=== PATIENT | male | born 1975 | race Caucasian/White ===

== ENCOUNTER 2018-05-07 14:41 | Inpatient (IN) | payer OTHER ==
[~2018-05-07] VITALS: Ht 190.5 cm; Wt 155.6 kg
[2018-05-07 14:46] VITALS: BP 155/90
[2018-05-07] MEDS ORDERED: ASPIRIN 325 MG TAB PO ONE (15:55)
[2018-05-07] MEDS ORDERED: NITROGLYCERIN 2% 1 GM PKT TP ONE (15:55)
[2018-05-07] MEDS ORDERED: MORPHINE SULFATE 4 MG/ML SYR IVP ONE (15:55)
[2018-05-07] MEDS ORDERED: LIDOCAINE VISCOUS 2% 20 ML UDC PO ONE (16:25)
[2018-05-07] MEDS ORDERED: ALUMINUM HYD/MAG/SIMETHICONE 30 ML UDC PO ONE (16:25)
[2018-05-07 16:31] LABS: BASOPHILS % (AUTO) 0.7 % (0.0-2.0); EOSINOPHILS # (AUTO) 0.1 K/uL (0-0.4); EOSINOPHILS % (AUTO) 1.7 % (0.0-4.0); HEMATOCRIT 48.7 % (36-52); HEMOGLOBIN 16.4 g/dL (12.0-18.0); LYMPHOCYTES # (AUTO) 1.9 K/uL (2.0-11.5); LYMPHOCYTES % (AUTO) 30.6 % (20.5-51.1); MEAN CORPUSCULAR HEMOGLOBIN 33 pg (27-31); MEAN CORPUSCULAR HGB CONC 34 g/dL (33-37); MEAN CORPUSCULAR VOLUME 96.6 fL (80-94); MONOCYTES # (AUTO) 0.4 K/uL (0.8-1.0); MONOCYTES % (AUTO) 7.3 % (1.7-9.3); NEUTROPHILS # (AUTO) 3.7 K/uL (1.8-7.7); NEUTROPHILS % (AUTO) 59.7 % (42.2-75.2); PLATELET COUNT (AUTO) 101 K/uL (140-450); RED BLOOD CELL COUNT(AUTO) 5.04 MIL/uL (4.20-6.10); RED CELL DISTRIBUTION WIDTH 14.3 % (11.6-13.7); WHITE BLOOD COUNT (AUTO) 6.1 K/uL (4.8-10.8)
[2018-05-07 16:36] LABS: ANION GAP 14.1 (8-16); CARBON DIOXIDE 28.3 mmol/L (21-32); CREATININE 0.9 mg/dL (0.7-1.3); POTASSIUM 3.4 mmol/L (3.5-5.1)
[2018-05-07 16:52] LABS: CHOL/HDL RATIO 3.2 (1-4.5)
[2018-05-07 17:01] LABS: CREATINE KINASE MB 1.3 ng/mL (0-3.6)
[2018-05-07] MEDS ORDERED: INSULIN REGULAR, HUMAN 100 UNIT/ML VIAL IVP ONE (17:05)
[2018-05-07] MEDS ORDERED: POTASSIUM CHLORIDE 10 MEQ TABER PO ONE (17:05)
[2018-05-07] MEDS ORDERED: ACETAMINOPHEN 325 MG TAB PO PRN (18:05)
[2018-05-07] MEDS ORDERED: MORPHINE SULFATE 4 MG/ML SYR IVP PRN (18:05)
[2018-05-07] MEDS ORDERED: ONDANSETRON 4 MG/2 ML VIAL IVP PRN (18:05)
[2018-05-07] MEDS ORDERED: LORazepam 2 MG/ML VIAL IVP ONE (18:35)
[2018-05-07 19:25] VITALS: BP 151/94
[2018-05-07] MEDS: MULTIVITAMIN-12 10 ML, THIAMINE 100 MG, MAGNESIUM SULFATE 50% 2,000 MG, FOLIC ACID 1 MG... IV SCH ×5 (20:30)
[2018-05-07] MEDS: BLOOD GLUCOSE MONITORING 1 DEV DEV FS SCH (20:33)
[2018-05-07] MEDS: INSULIN LISPRO SLIDING SCALE 100 UNITS/ML VIAL SUBQ PRN (22:02)
[2018-05-07] MEDS: LORazepam 2 MG/ML VIAL IVP PRN (22:06)
[2018-05-08] VITALS: BP 133/86
[2018-05-08 00:34] LABS: CREATINE KINASE MB 1.2 ng/mL (0-3.6)
[2018-05-08 04:00] VITALS: BP 132/94
[2018-05-08] MEDS: BLOOD GLUCOSE MONITORING 1 DEV DEV FS SCH ×4 (06:30→21:00)
[2018-05-08] MEDS: INSULIN LISPRO SLIDING SCALE 100 UNITS/ML VIAL SUBQ PRN ×4 (06:33→20:45)
[2018-05-08 07:30] LABS: BASOPHILS % (AUTO) 0.6 % (0.0-2.0); EOSINOPHILS # (AUTO) 0.1 K/uL (0-0.4); EOSINOPHILS % (AUTO) 1.3 % (0.0-4.0); HEMATOCRIT 44.8 % (36-52); HEMOGLOBIN 15.2 g/dL (12.0-18.0); LYMPHOCYTES # (AUTO) 1.7 K/uL (2.0-11.5); LYMPHOCYTES % (AUTO) 26.8 % (20.5-51.1); MEAN CORPUSCULAR HEMOGLOBIN 33 pg (27-31); MEAN CORPUSCULAR HGB CONC 34 g/dL (33-37); MEAN CORPUSCULAR VOLUME 96.3 fL (80-94); MONOCYTES # (AUTO) 0.5 K/uL (0.8-1.0); NEUTROPHILS % (AUTO) 63.3 % (42.2-75.2); PLATELET COUNT (AUTO) 69 K/uL (140-450); RED BLOOD CELL COUNT(AUTO) 4.65 MIL/uL (4.20-6.10); RED CELL DISTRIBUTION WIDTH 14.1 % (11.6-13.7); WHITE BLOOD COUNT (AUTO) 6.3 K/uL (4.8-10.8)
[2018-05-08 07:45] LABS: ALBUMIN 3.7 g/dL (3.4-5.0); ANION GAP 16.9 (8-16); CARBON DIOXIDE 26.2 mmol/L (21-32); CREATININE 0.8 mg/dL (0.7-1.3); POTASSIUM 3.1 mmol/L (3.5-5.1); TOTAL BILIRUBIN 1.9 mg/dL (0.0-1.0)
[2018-05-08 08:00] VITALS: BP 154/103
[2018-05-08] MEDS: ASPIRIN 81 MG TAB.CHEW PO SCH (09:12)
[2018-05-08] MEDS: PANTOPRAZOLE 40 MG INJ VIAL IVP SCH (09:12)
[2018-05-08] MEDS: LORazepam 2 MG/ML VIAL IVP PRN (09:12)
[2018-05-08] MEDS ORDERED: LORazepam 2 MG/ML VIAL IVP PRN (11:20)
[2018-05-08 12:00] VITALS: BP 172/115
[2018-05-08] MEDS ORDERED: HYDROcodone/APAP 10/325 MG 1 TAB TAB PO PRN (13:05)
[2018-05-08] MEDS: chlordiazePOXIDE 25 MG CAP PO SCH ×2 (13:37→17:07)
[2018-05-08] MEDS: LABETALOL 100 MG/20 ML VIAL IVP PRN ×2 (13:38→20:51)
[2018-05-08 16:00] VITALS: BP 163/92
[2018-05-08] MEDS ORDERED: INSULIN LANTUS 100 UNITS/ML 10 ML VIAL SUBQ SCH (17:00)
[2018-05-08] MEDS: GABAPENTIN 300 MG CAP PO SCH (17:07)
[2018-05-08] MEDS: MULTIVITAMIN-12 10 ML, THIAMINE 100 MG, MAGNESIUM SULFATE 50% 2,000 MG, FOLIC ACID 1 MG... IV SCH ×5 (18:29)
[2018-05-08 18:54] LABS: CREATINE KINASE MB 1.6 ng/mL (0-3.6)
[2018-05-08 20:00] VITALS: BP 167/103
[2018-05-08] MEDS: POTASSIUM CHLORIDE 10 MEQ TABER PO SCH ×2 (20:47→23:56)
[2018-05-09] VITALS: BP 156/90
[2018-05-09 04:00] VITALS: BP 151/86
[2018-05-09] MEDS: INSULIN LISPRO SLIDING SCALE 100 UNITS/ML VIAL SUBQ PRN (06:40)
[2018-05-09] MEDS: BLOOD GLUCOSE MONITORING 1 DEV DEV FS SCH (07:09)
[2018-05-09 07:28] LABS: BASOPHILS # (AUTO) 0.1 K/uL (0.00-0.22); BASOPHILS % (AUTO) 1.8 % (0.0-2.0); EOSINOPHILS # (AUTO) 0.1 K/uL (0-0.4); EOSINOPHILS % (AUTO) 1.8 % (0.0-4.0); HEMATOCRIT 44.1 % (36-52); HEMOGLOBIN 14.7 g/dL (12.0-18.0); LYMPHOCYTES # (AUTO) 0.7 K/uL (2.0-11.5); LYMPHOCYTES % (AUTO) 13.9 % (20.5-51.1); MEAN CORPUSCULAR HEMOGLOBIN 33 pg (27-31); MEAN CORPUSCULAR HGB CONC 33 g/dL (33-37); MEAN CORPUSCULAR VOLUME 98.1 fL (80-94); MONOCYTES # (AUTO) 0.2 K/uL (0.8-1.0); MONOCYTES % (AUTO) 4.8 % (1.7-9.3); NEUTROPHILS # (AUTO) 3.8 K/uL (1.8-7.7); NEUTROPHILS % (AUTO) 77.7 % (42.2-75.2); PLATELET COUNT (AUTO) 60 K/uL (140-450); RED BLOOD CELL COUNT(AUTO) 4.49 MIL/uL (4.20-6.10); RED CELL DISTRIBUTION WIDTH 14.5 % (11.6-13.7); WHITE BLOOD COUNT (AUTO) 4.9 K/uL (4.8-10.8)
[2018-05-09 07:37] LABS: MAGNESIUM 2.4 mg/dL (1.8-2.4); PHOSPHORUS 2.3 mg/dL (2.5-4.9)
[2018-05-09 08:00] VITALS: BP 151/118
[2018-05-09] MEDS ORDERED: SITA50TA3 PO (08:43)
[2018-05-09] MEDS ORDERED: VITD1000 PO (08:43)
[2018-05-09] MEDS ORDERED: ATOR20TA40 PO (08:43)
[2018-05-09] MEDS ORDERED: GABA-638 PO (08:43)
[2018-05-09] MEDS ORDERED: LANTUS SUBQ ×2 (08:43)
[2018-05-09] MEDS ORDERED: VAS10 PO (08:43)
[2018-05-09] MEDS ORDERED: ATORVASTATIN 20 MG TAB PO SCH (09:00)
[2018-05-09] MEDS ORDERED: INSULIN LANTUS 100 UNITS/ML 10 ML VIAL SUBQ SCH (09:00)
[2018-05-09] MEDS ORDERED: CHOLECALCIFEROL 1,000 IU TAB PO SCH (09:00)
[2018-05-09] MEDS ORDERED: ENALAPRIL 10 MG TAB PO SCH (09:00)
[2018-05-09] MEDS: ASPIRIN 81 MG TAB.CHEW PO SCH (09:16)
[2018-05-09] MEDS: GABAPENTIN 300 MG CAP PO SCH (09:16)
[2018-05-09] MEDS: chlordiazePOXIDE 25 MG CAP PO SCH (09:16)
[2018-05-09] MEDS: PANTOPRAZOLE 40 MG INJ VIAL IVP SCH (09:17)
[2018-05-09 10:03] VITALS: BP 151/93
[2018-05-09 14:00] LABS: ANION GAP 17.8 (8-16); CARBON DIOXIDE 26.1 mmol/L (21-32); CREATININE 0.9 mg/dL (0.7-1.3); POTASSIUM 3.9 mmol/L (3.5-5.1)
[2018-05-10 10:14] LABS: HEPATITIS A ANTIBODY IGM Negative (Negative); HEPATITIS B CORE AB TOTAL Negative (Negative); HEPATITIS B SURFACE ANTIBODY Non Reactive (.); HEPATITIS B SURFACE ANTIGEN Negative (Negative)
== END 2018-05-09 10:30 | disposition home or self-care (01) | DRG 280 ==
LOC: MED 14:41 → MTU 18:08
PROVIDERS: ADMIT Internal Medicine Pulmonary Disease; ATTEND Internal Medicine Pulmonary Disease
DX: K70.10 Alcoholic hepatitis without ascites (principal); E87.1 Hypo-osmolality and hyponatremia; E87.8 Other disorders of electrolyte and fluid balance, not elsewhere classified; E87.6 Hypokalemia; R07.9 Chest pain, unspecified; E11.9 Type 2 diabetes mellitus without complications; F10.239 Alcohol dependence with withdrawal, unspecified; I10 Essential (primary) hypertension; Y90.9 Presence of alcohol in blood, level not specified; E78.5 Hyperlipidemia, unspecified; Z79.84 Long term (current) use of oral hypoglycemic drugs
CPT/HCPCS: 36415; 71045; 76700; 80048; 80053; 82550; 82553; 82948; 83036; 83735; 83880; 84100; 84484; 85025; 85379; 86704; 86706; 86708; 86709; 86803; 87081; 87340; 93005; 96374; 96375; 99285; A9153; C9113; J1815; J2060; J2270; J2405; J3411; J3475; J3490; J7060; Q0092